=== PATIENT | female | born 1945 | race African-American/Black ===

== ENCOUNTER 2017-10-18 07:13 | Day surgery (SDC) | payer OTHER ==
[2017-10-03 12:26] VITALS: BMI 35.5
[2017-10-18] MEDS ORDERED: ONDANSETRON 4 MG/2 ML VIAL IVPUSH PRN (11:43)
[2017-10-18] MEDS ORDERED: oxyCODONE HCL 5 MG TABLET PO PRN (11:43)
[2017-10-18] MEDS ORDERED: KETOROLAC TROMETHAMINE 30 MG/1 ML VIAL IVPUSH ONE (11:44)
[2017-10-18] MEDS ORDERED: LACTATED RINGERS SOLUTION 1,000 ML IV SCH (11:45)
--- NOTE | 2017-10-18 11:55 | OP ---
DATE OF OPERATION: 10/18/2017 SURGEON: Luca Johnson MD ANESTHESIA: General. 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 OPERATION PERFORMED: Manipulation under anesthesia. OPERATION DETAILS: Timeout was called. Under general anesthesia, the patient's range of movement pre-manipulation was 0-20 degrees. Following the manipulation, was 0-90 to 95 degrees. Adhesions were broken down audibly. This was done gently and slowly. Plan for analgesia and early mobilization. MD CRISSY Conroy/[id number]
--- NOTE | 2017-10-18 12:13 | OP ---
Operative Note - Note: Operative Date: 10/18/17 Pre-Operative Diagnosis: Left TKA arthrofibrosis Operation: Left TKA manipulation under anaesthesia Findings: Pre-procedure PROM 0-10 degrees flexion. Post-procedure PROM 0-90 degrees flexion. Post-Operative Diagnosis: Same as Pre-op Surgeon: Luca Johnson Anesthesiologist/SEARCH DIRECTOR: Kira Alonso Anesthesia: General Estimated Blood Loss (mls): 0 Operative Report Dictated: Yes
[2017-10-18 12:20] VITALS: TEMP 98.2
[2017-10-18 14:05] VITALS: BP 123/73; PULSE 64
--- NOTE | 2017-10-19 09:40 | DS ---
DATE OF ADMISSION: 10/18/2017 DATE OF DISCHARGE: 10/18/2017 SUMMARY: The patient 6 months ago underwent a left total knee arthroplasty. 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 Under deep general anesthesia, gentle manipulation was performed. No complications. A number of cracks and breaking of scarring tissue was noted. The manipulation was done gently and deliberately. It was elected not to do any arthroscopic surgery but plan on arthroscopic lysis only if necessary if this manipulation failed. The range of movement prior to manipulation was 0-20 degrees; following manipulation, was 0-90 to 95 degrees. No complications. Patient was provided with some Toradol and analgesic medication. Will continue with her range of movement exercises with physiotherapy as of tomorrow. MD CRISSY Conroy/[id number]
[2017-10-19] MEDS ORDERED: PATIENT'S OWN MEDICATION (NON-FORMULARY) (Amlodipine/Atorvastatin [Amlodipine-Atorvast 10- PO SCH (10:00)
[2017-10-19] MEDS ORDERED: [UNRECOGNIZED DRUG - REMARK] PO SCH (10:00)
== END 2017-10-18 13:50 | disposition home or self-care (01) ==
LOC: FASU 07:13
PROVIDERS: ATTEND Orthopaedic Surgery Orthopaedic Surgery of the Spine
PROC: 7W06X9Z Osteopathic Treatment of Lower Extremities using Other Method (ICD-10-PCS; principal; 2017-10-18 11:30)
DX: M24.662 Ankylosis, left knee (principal)
CPT/HCPCS: 94760

== ENCOUNTER 2017-12-06 05:50 | Day surgery (SDC) | payer OTHER ==
[2017-11-30 11:57] VITALS: BMI 35.5
[2017-12-06] MEDS ORDERED: oxyCODONE HCL 5 MG TABLET PO PRN (07:53)
[2017-12-06] MEDS ORDERED: PROMETHAZINE HCL 25 MG/1 ML VIAL IVPUSH PRN (07:53)
[2017-12-06] MEDS ORDERED: ONDANSETRON 4 MG/2 ML VIAL IVPUSH PRN (07:53)
[2017-12-06] MEDS ORDERED: LACTATED RINGERS SOLUTION 1,000 ML IV SCH (08:00)
[2017-12-06] MEDS ORDERED: ONDANSETRON 4 MG/2 ML VIAL IVPUSH ONE (08:07)
--- NOTE | 2017-12-06 08:15 | OP ---
DATE OF OPERATION: 12/06/2017 PREOPERATIVE DIAGNOSIS: Arthrofibrosis post left total knee arthroplasty on the left. POSTOPERATIVE DIAGNOSIS: Arthrofibrosis post left total knee arthroplasty on the left. PROCEDURE PERFORMED: Manipulation under general anesthesia. OPERATION DETAILS: The patient was subjected to general anesthesia. Timeout was called. Preoperatively, range of movement was 0-60 degrees. Following the manipulation, a gentle breaking of adhesions noted, the range of movement was improved from 0 to 110 degrees. No complications. MD CRISSY Conroy/[id number]
[2017-12-06 09:21] VITALS: TEMP 97.6
[2017-12-06 09:56] VITALS: BP 138/76; PULSE 68
== END 2017-12-06 10:00 | disposition home or self-care (01) ==
LOC: FASU 05:50
PROVIDERS: ATTEND Orthopaedic Surgery Orthopaedic Surgery of the Spine
PROC: 0SNDXZZ Release Left Knee Joint, External Approach (ICD-10-PCS; principal; 2017-12-06 07:39)
DX: M24.662 Ankylosis, left knee (principal); Z96.652 Presence of left artificial knee joint